=== PATIENT | female | born 1965 | race Two or more races ===

== ENCOUNTER 2016-06-21 21:19 | Emergency (ER) | payer OTHER ==
[~2016-06-21] VITALS: Ht 162.6 cm; Wt 63.5 kg
--- NOTE | 2016-06-21 21:22 | NUR ---
PT TO ER BB RA FROM HOME FOR INCREASED ANXIETY. PER EMS, PT STATES THAT SHE TOOK ADDITIONAL DOSE OF BUSPAR AT HOME. PT APPEARS ANXIOUS UPON ARRIVAL. PT A/OX4. BREATHS EQUAL AND UNLABORED. PT TO ER BED. PT WAITING TO BE SEEN BY .
[2016-06-21] MEDS ORDERED: diphenhydrAMINE HCL 25 MG CAPSULE ONE (21:54)
[2016-06-21] MEDS ORDERED: FAMOTIDINE (20 MG) 20 MG TABLET ONE (21:55)
[2016-06-21] MEDS ORDERED: LORAZEPAM 1 MG TABLET ONE (21:55)
[2016-06-21] MEDS ORDERED: predniSONE 20 MG TABLET ONE (21:55)
[2016-06-21] MEDS ORDERED: diphenhydrAMINE HCL 50 MG CAPSULE PO ONE (22:00)
[2016-06-21] MEDS ORDERED: LORAZEPAM 1 MG TABLET PO ONE (22:00)
[2016-06-21] MEDS ORDERED: predniSONE 10 MG TABLET PO ONE (22:00)
[2016-06-21] MEDS ORDERED: FAMOTIDINE (20 MG) 20 MG TABLET PO ONE (22:00)
--- NOTE | 2016-06-21 22:08 | NUR ---
PT MEDICATED ORDERED.
--- NOTE | 2016-06-21 22:52 | NUR ---
Patient discharged to home in stable condition. Written and verbal after care instructions given. Patient verbalizes understanding of instruction. Ambulatory with a steady gait accompanied by spouse. Instructed not to drive.
[2016-06-21 22:54] VITALS: BP 128/85
== END 2016-06-21 22:54 | disposition home or self-care (01) ==
LOC: EDBD 21:21 → ER 21:21
DX: L50.0 Allergic urticaria (principal); F32.9 Major depressive disorder, single episode, unspecified; F90.9 Attention-deficit hyperactivity disorder, unspecified type; F41.9 Anxiety disorder, unspecified
CPT/HCPCS: 99284; A4606; J7512; Q0163; Z7610